=== PATIENT | female | born 1965 ===

== ENCOUNTER 2022-06-03 07:45 | Inpatient (IN) | payer OTHER ==
[~2022-06-03] VITALS: Ht 157.5 cm; Wt 126.1 kg
[2022-06-03] MEDS ORDERED: LEVOTHY PO (09:11)
[2022-06-03] MEDS ORDERED: LEVO-T175 MCG PO (09:13)
[2022-06-03] MEDS ORDERED: TIROSINT150 MCG PO (09:14)
[2022-06-03] MEDS ORDERED: SULFAZINE EC500 MG PO (09:15)
[2022-06-03] MEDS ORDERED: ZESTRIL40 M1 PO (09:15)
[2022-06-03] MEDS ORDERED: GLUMETZA500 MG PO (09:16)
[2022-06-03] MEDS ORDERED: METROTEXATE PO (09:30)
[2022-06-09] MEDS ORDERED: TREXALL5 MG (08:13)
[2022-06-09] MEDS ORDERED: MEDROLPACK PO (10:59)
[2022-06-09] MEDS ORDERED: COLACE100 MG PO (10:59)
[2022-06-09] MEDS ORDERED: AMOX-CLAV 875-1 EACH PO (10:59)
[2022-06-09] MEDS ORDERED: NEURONTIN800 MG PO (10:59)
[2022-06-09] MEDS ORDERED: PERCOCET 5-3251 EACH PO (10:59)
== END 2022-06-10 13:19 | disposition home or self-care (01) | DRG 455 ==
LOC: O/R 06-09 05:30 → SURH 06-09 07:45
PROVIDERS: ADMIT Orthopaedic Surgery Orthopaedic Surgery of the Spine; ATTEND Orthopaedic Surgery Orthopaedic Surgery of the Spine
PROC: 0SG3071 Fusion of Lumbosacral Joint with Autologous Tissue Substitute, Posterior Approach, Posterior Column, Open Approach (ICD-10-PCS; 2022-06-09)
PROC: 0ST40ZZ Resection of Lumbosacral Disc, Open Approach (ICD-10-PCS; 2022-06-09)
PROC: 0QB30ZZ Excision of Left Pelvic Bone, Open Approach (ICD-10-PCS; 2022-06-09)
PROC: 07DR0ZZ Extraction of Iliac Bone Marrow, Open Approach (ICD-10-PCS; 2022-06-09)
PROC: 4A12X4Z Monitoring of Cardiac Electrical Activity, External Approach (ICD-10-PCS; 2022-06-09)
PROC: XRGD0R7 Fusion of Lumbosacral Joint using Custom-Made Anatomically Designed Interbody Fusion Device, Open Approach, New Technology Group 7 (ICD-10-PCS; principal; 2022-06-09 11:15)
DX: M48.07 Spinal stenosis, lumbosacral region (principal); M43.17 Spondylolisthesis, lumbosacral region; M54.17 Radiculopathy, lumbosacral region; I10 Essential (primary) hypertension; E11.9 Type 2 diabetes mellitus without complications; E03.9 Hypothyroidism, unspecified; Z79.84 Long term (current) use of oral hypoglycemic drugs